=== PATIENT | male | born 1965 | race Caucasian/White ===

== ENCOUNTER 2023-12-29 13:50 | Outpatient (CLI) | payer OTHER, SELFPAY ==
--- NOTE | ~2023-12-29 | XR_ITS ---
HISTORY: Left shoulder pain-ANTERIOR INTO SCAPULA,WT LIFTING INJURY COMPARISON: None. Many prior radiographs of the right shoulder were performed. MRI examination of the left shoulder was performed 02/04/2015, for which reference will be made. TECHNIQUE: 4 views of the left shoulder were performed. FINDINGS: No acute fracture. The glenohumeral and acromioclavicular joint space is maintained The visualized portion of the adjacent left lung is clear. Calcified lymph nodes project in the right superior mediastinum. The humeral head is well seated within the glenoid fossa. IMPRESSION: No acute fracture or anterior dislocation, as detailed above. If clinical suspicion persists, further evaluation with MRI examination may be performed. Reviewed, dictated and finalized at location A. 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
== END 2023-12-29 13:51 | disposition home or self-care (01) ==
LOC: CHSIMG 13:57
PROVIDERS: PCP Internal Medicine; Visit Provider Internal Medicine
DX: M25.512 Pain in left shoulder (principal)
CPT/HCPCS: 73030

== ENCOUNTER 2024-09-20 15:06 | Outpatient (CLI) | payer OTHER, SELFPAY ==
--- NOTE | 2024-09-20 15:50 | ECG_ITS ---
Test Date: 2024-09-20 15:56:29 Measurements Intervals High View Rate: 60 P: 62 AL: 186 QRS: -21 QRSD: 96 T: 6 QT: 407 QTc: 408 Interpretive Statements SINUS RHYTHM INCOMPLETE RIGHT BUNDLE BRANCH BLOCK PEAKED T WAVES- CONSIDER HYPERKALEMIA ABNORMAL ECG No previous ECG available for comparison Electronically Signed On 09-20-2024 16:49:44 CDT by Yousif Bangura D.O.
[2024-09-20 16:14] LABS: Hematocrit 41.9 % (40.0-54.0); Hemoglobin 14.0 g/dL (14.0-18.0); Mean Corpuscular HGB Conc 33.4 g/dL (32-36); Mean Corpuscular Hemoglobin 31.0 pg (27.0-31.0); Mean Corpuscular Volume 92.7 fL (78.0-102.0); Platelet Count Result 267 K/mm3 (150-420); Red Blood Count 4.52 M/mm3 (4.70-6.10); White Blood Count 6.6 K/mm3 (4.8-10.8)
[2024-09-20 16:59] LABS: Alanine Aminotransferase 22 U/L (6-50); Albumin Level 4.6 g/dL (3.5-5.1); Alkaline Phosphatase 64 U/L (38-126); Anion Gap 4 mmol/L (4-12); Aspartate Amino Transferase 43 U/L (17-59); Bilirubin,Total 0.5 mg/dL (0.2-1.3); Blood Urea Nitrogen 30 mg/dL (9-20); Calcium 9.4 mg/dL (8.4-10.2); Carbon Dioxide 27 mmol/L (22-30); Chloride 100 mmol/L (98-107); Estimated Glomerular Filt Rate > 60; Glucose 97 mg/dL (65-110); Osmolality Calculated 278 mOsm/kg (285-295); Potassium 5.3 mmol/L (3.4-5.0); Sodium 131 mmol/L (137-145); Total Protein 6.8 g/dL (6.3-8.2)
== END 2024-09-20 15:07 | disposition home or self-care (01) ==
LOC: CHSLAB 15:09
PROVIDERS: PCP Internal Medicine; Visit Provider Internal Medicine
DX: Z01.818 Encounter for other preprocedural examination (principal); I45.19 Other right bundle-branch block; R94.31 Abnormal electrocardiogram [ECG] [EKG]
CPT/HCPCS: 36415; 80053; 85027; 93005